=== PATIENT | male | born 1940 | race Caucasian/White ===

== ENCOUNTER → 2020-04-08 | Outpatient (CLI) | payer MEDICARE ==
--- NOTE | 2020-04-08 11:12 | PFTRPT ---
Visit Date: 04/08/2020 Referring Doctor: NUBIA CLARK MD Height: 67.00 Inches Weight: 225.00 Lbs BSA: 2.13 Diagnosis: I49.3 Spirometry: Study of excellent technical quality. Forced vital capacity normal. FEV1 in proportion. Obstructive index is, therefore, normal. Flow Volume Loop: Expiratory limb of the flow volume loop is normal. No significant bronchodilator response is identified. Lung Volumes: Total lung capacity is normal. Residual volume borderline in proportion. Diffusing Capacity: Diffusing capacity normal. Hemoglobin: Hemoglobin acceptable at 15.7. Airway Mechanics: Airway resistance and conductance are normal. IMPRESSION: Probably normal study. MTDD
== END ==
LOC: M CARPUL 10:08
PROVIDERS: ATTEND Internal Medicine Cardiovascular Disease
DX: I49.3 Ventricular premature depolarization (principal)

== ENCOUNTER 2024-04-15 08:37 | Day surgery (SDC) | payer MEDICARE ==
[~2024-04-15] VITALS: Ht 167.6 cm; Wt 95.3 kg
[~2024-04-15 08:37] MED LIST: ATOR40TA75 PO; BRIM0.2S13 OU; ECOT81TA5 PO; FURO20TA2 PO; LATA1DRO OU; LEVO75TA4 PO; LOSA25TA13 PO; LR 1,000 ML IV SCH; METO50TA7 PO; MIDAZOLAM INJ 2MG/2ML VIAL As Ordered ONE; ODOR100T3 PO; OMEG10002 PO; SAW1CAP3 PO; THERTAB52 PO; TIMO0.5S20 OU; fentaNYL 100 MCG/2 ML INJECTION As Ordered ONE
[2024-04-15] MEDS: TETRACAINE 0.5% OPHTH SOLN 4ML OS SCH (10:03)
[2024-04-15] MEDS: ATROPINE SULFATE 1% OPHTH SOLN 2ML BTL OS SCH (10:03)
[2024-04-15] MEDS: FLURBIPROFEN 0.03% OPHTH SOLN 2.5 ML OS SCH (10:04)
[2024-04-15] MEDS: PHENYLEPHRINE 2.5% OPHTH SOL 2ML OS SCH (10:04)
[2024-04-15] MEDS: TRYPAN BLUE 0.06 % 2.25 ML OPHTH SYR (VISIONBLUE) As Ordered ONE (11:28)
[2024-04-15] MEDS: MOXIFLOXACIN 0.6MG/0.4ML INTRAOCULAR SYRINGE As Ordered ONE (11:33)
[2024-04-15] MEDS: LIDOCAINE 1% SDV 5ML VIAL As Ordered ONE (11:33)
[2024-04-15 12:02] VITALS: BP 133/68; TEMP 97.9; O2SAT 97
== END 2024-04-15 12:18 | disposition home or self-care (01) ==
LOC: M SDC 08:37
PROVIDERS: ATTEND Ophthalmology
DX: H25.12 Age-related nuclear cataract, left eye (principal); H40.1122 Primary open-angle glaucoma, left eye, moderate stage; I25.2 Old myocardial infarction; E03.9 Hypothyroidism, unspecified; Z85.46 Personal history of malignant neoplasm of prostate; Z92.3 Personal history of irradiation; Z98.61 Coronary angioplasty status; Z79.899 Other long term (current) drug therapy
CPT/HCPCS: 66991; C1783; J2250; J3010; V2632

== ENCOUNTER 2024-04-22 07:22 | Day surgery (SDC) | payer MEDICARE ==
[~2024-04-22] VITALS: Ht 167.6 cm; Wt 94.7 kg
[~2024-04-22 07:22] MED LIST changes: -MIDAZOLAM INJ 2MG/2ML VIAL As Ordered ONE; -fentaNYL 100 MCG/2 ML INJECTION As Ordered ONE
[2024-04-22] MEDS: PHENYLEPHRINE 2.5% OPHTH SOL 2ML OS SCH (08:29)
[2024-04-22] MEDS: TETRACAINE 0.5% OPHTH SOLN 4ML OS SCH (08:30)
[2024-04-22] MEDS: FLURBIPROFEN 0.03% OPHTH SOLN 2.5 ML OS SCH (08:30)
[2024-04-22] MEDS: ATROPINE SULFATE 1% OPHTH SOLN 2ML BTL OS SCH (08:30)
[2024-04-22] MEDS ORDERED: MIDAZOLAM INJ 2MG/2ML VIAL As Ordered ONE (09:47)
[2024-04-22] MEDS: LIDOCAINE 1% SDV 5ML VIAL As Ordered ONE (09:50)
[2024-04-22] MEDS: TRYPAN BLUE 0.06 % 2.25 ML OPHTH SYR (VISIONBLUE) As Ordered ONE (09:50)
[2024-04-22] MEDS: CEFUROXIME 1MG/0.1ML INTRACAMERAL INJ As Ordered ONE (09:51)
[2024-04-22] MEDS: CARBACHOL 0.01% OPHTH SOLN 1.5ML VIAL As Ordered ONE (10:11)
[2024-04-22 10:27] VITALS: BP 166/86; TEMP 97.6; O2SAT 97
== END 2024-04-22 10:42 | disposition home or self-care (01) ==
LOC: M SDC 07:22
PROVIDERS: ATTEND Ophthalmology
DX: H25.11 Age-related nuclear cataract, right eye (principal); H40.1112 Primary open-angle glaucoma, right eye, moderate stage; I25.2 Old myocardial infarction; Z98.61 Coronary angioplasty status; Z87.891 Personal history of nicotine dependence; E03.9 Hypothyroidism, unspecified; Z85.46 Personal history of malignant neoplasm of prostate; Z92.3 Personal history of irradiation; Z79.899 Other long term (current) drug therapy; Z88.0 Allergy status to penicillin
CPT/HCPCS: 65820; 66991; C1783; J0697; J2250; V2632